=== PATIENT | male | born 1965 | race Caucasian/White ===

== ENCOUNTER 2016-10-25 22:15 | Emergency (ER) | payer BC ==
[~2016-10-25] VITALS: Ht 177.8 cm; Wt 104.0 kg
[2016-10-25 22:18] VITALS: Ht 177.8 cm; Wt 104.0 kg
[2016-10-25] MEDS ORDERED: ONDANSETRON (ODT) 4 MG TAB ODT STA (22:33)
--- NOTE | 2016-10-25 22:33 | ERA ---
ER Documentation Chief Complaint Date/Time DATE: 10/25/16 TIME: 22:33 Chief Complaint r 3rd finger injury amputation HPI The patient is a 50-year-old male, presenting to the ER because of acute traumatic amputation of the right distal middle finger from the closing down about 30 minutes prior to arrival. He denies any other injury. He did not have done a injection for many years, smokes socially Past medical history: None Past surgical history: Neck surgery ROS All systems reviewed and are negative except as per history of present illness. Medications Home Meds Active Scripts Hydrocodone/Acetaminophen ([place] 10-325 Tablet) 1 Each Tablet, 1 TAB PO Q6H Y for PAIN, #10 TAB Prov:KOREY BENSON MD 10/26/16 Cephalexin* (Keflex*) 500 Mg Capsule, 500 MG PO QID for 10 Days, CAP Prov:KOREY BENSON MD 10/26/16 PMhx/Soc Medical and Surgical Hx: pt denies Medical Hx History of Surgery: Yes (Neck surgery ) Hx Alcohol Use: No Hx Substance Use: No Hx Tobacco Use: No Smoking Status: Never smoker Physical Exam Vitals Vital Signs Date Time Temp Pulse Resp B/P Pulse Ox O2 Delivery O2 Flow Rate FiO2 10/26/16 00:41 98.2 78 20 128/78 100 Room Air 10/25/16 22:18 98.3 97 20 129/79 97 Physical Exam Const: No acute distress. Head: Atraumatic. Eyes: Normal Conjunctiva. ENT: Normal External Ears, Nose and Mouth. Neck: Full range of motion. No meningismus. Resp: Clear to auscultation bilaterally. Cardio: Regular rate and rhythm, no murmurs. Abd: Soft, non distended, normal bowel sounds, non tender. Skin: No petechiae or rashes. Back: No midline or flank tenderness. Ext: Traumatic distal amputation of the right distal finger with exposed bone, no bleeding Neur: Awake and alert. No focal deficit Psych: Normal Mood and Affect. Results 24 hrs Current Medications Medications (Trade) Dose Ordered Sig/Urvashi Route PRN Reason Start Time Stop Time Status Last Admin Dose Admin Diphtheria/ Tetanus/Acell Pertussis (Adacel) 0.5 ml ONCE ONCE IM* 10/25/16 23:00 10/25/16 23:01 DC 10/25/16 22:40 Cefazolin Sodium (Ancef) 1 gm ONCE ONCE IM 10/25/16 23:00 10/25/16 23:01 DC 10/25/16 22:40 Acetaminophen/ Hydrocodone Bitart ([place] ()) 1 tab ONCE ONCE PO 10/25/16 23:00 10/25/16 23:01 DC 10/25/16 22:41 Ondansetron HCl (Zofran Odt) 4 mg ONCE STAT ODT 10/25/16 22:33 10/25/16 22:35 DC 10/25/16 22:40 Procedures/[place] [address] Radiology Main Line: [phone] DIAGNOSTIC IMAGING REPORT Patient: KERRY BANKS : 1965 Age: 50 Sex: M MR #: [id number] DOS: 10/25/16 2233 Ordering MD: KOREY BENSON MD Location: [facility] Room/Bed: PROCEDURE: X-ray right hand CLINICAL INDICATION: Amputation of the distal right third finger. TECHNIQUE: 3 views right hand COMPARISON: None FINDINGS: Osseous and soft tissue traumatic amputation at the tip of the right third finger, at the tuft of the distal phalanx. A portion of the third finger tuft remains. Remaining osseous structures are otherwise without evident acute fracture or dislocation. IMPRESSION: Osseous and soft tissue traumatic amputation of the tip of the right third finger. RPTAT: [facility] Physician Audra Date Time Electronically viewed and signed by Physician Audra on 10/26/2016 00:01 RS/ CC: KOREY BENSON MD MEDICAL MAKING DECISION: The patient is a 50-year-old male, presenting with acute traumatic amputation of distal right middle finger. It was cleaned and dressed with normal saline and finger dressing. He was treated with Tdap IM, Ancef 1 g IM, [place] 10 mg p.o. for pain, Zofran ODT for nausea with good response. Consultation: I discussed the patient with the on-call orthopedist Dr. Hebert who would follow-up the patient tomorrow in the office for further treatment. Departure Diagnosis: Primary Impression: Traumatic amputation of finger Condition: Good Comments He was discharged with Ross Hoover I discussed the findings with the patient. I advised the patient to follow-up with the the on-call orthopedist Dr. Hebert in the morning and return if any concern. The patient's blood pressure was elevated (>120/80) but appears stable without evidence of hypertension emergency or urgency. The patient was counseled about the risks of hypertension and urged to pursue outpatient monitoring and therapy within a week with their primary care physician. KOREY BENSON MD October 25, 2016 22:33
[2016-10-25] MEDS ORDERED: CEFAZOLIN 1 GM INJ IM ONE (23:00)
[2016-10-25] MEDS ORDERED: DIPHTH/TET/ACEL PERTUSS (ADULT) 0.5 ML VIAL IM* ONE (23:00)
[2016-10-25] MEDS ORDERED: HYDROCODONE/APAP (10/325) TAB PO ONE (23:00)
--- NOTE | 2016-10-26 00:02 | RADRPT ---
PROCEDURE: X-ray right hand CLINICAL INDICATION: Amputation of the distal right third finger. TECHNIQUE: 3 views right hand COMPARISON: None FINDINGS: Osseous and soft tissue traumatic amputation at the tip of the right third finger, at the tuft of th e distal phalanx. A portion of the third finger tuft remains. Remaining osseous structures are other whitt without evident acute fracture or dislocation. IMPRESSION: Osseous and soft tissue traumatic amputation of the tip of the right third finger. RPTAT: [facility] Physician Audra Date Time Electronically viewed and signed by Physician Audra on 10/26/2016 00:01 MARZENA/
[2016-10-26] MEDS ORDERED: HYDR-902 PO (00:37)
[2016-10-26] MEDS ORDERED: CEPH-443 PO (00:37)
[2016-10-26 00:41] VITALS: BP 128/78; PULSE 78; RESP 20; TEMP 98.2
== END 2016-10-26 01:00 | disposition home or self-care (01) ==
LOC: FTE 22:15
DX: S68.122A Partial traumatic metacarpophalangeal amputation of right middle finger, initial encounter (principal); X58.XXXA Exposure to other specified factors, initial encounter; Y92.9 Unspecified place or not applicable; Z23 Encounter for immunization
CPT/HCPCS: 73140; 90715; J0690; 90471; 96372